=== PATIENT | female | born 1955 | race Caucasian/White ===

== ENCOUNTER 2016-10-21 10:48 | Day surgery (SDC) | payer BC ==
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
[~2016-10-21 10:48] MED LIST: Lactated Ringers 1,000 ML IV SCH; Lidocaine 1% 2 ML ONE; Lidocaine 1%/Sod Bicarbonate in NS 8.4% 1 ML Syringe IV PRN; Midazolam 1 MG/ML 2 ML SDV ONE; Propofol 200 MG/20 ML SDV ONE; Sodium Chloride 0.9% 10 ML Syringe FLUSH PRN; fentaNYL 100 MCG/2 ML SDV ONE
[2016-10-21] MEDS ORDERED: Heparin Sodium 5,000 Units/ML Vial ONE (11:13)
[2016-10-21] MEDS ORDERED: Lidocaine 1% 30 ML SDV ONE (11:14)
--- NOTE | 2016-10-21 12:35 | PCM.OPNOTE ---
- General Post-Op/Procedure Note Date of Surgery/Procedure: 10/21/16 Operative Procedure(s): Bone marrow biopsy and aspiration Pre Op Diagnosis: Elevated tryptase level Post-Op Diagnosis: Same Anesthesia Technique: Local (6 mL), MAC Primary Surgeon: Rere Wagner Anesthesia Provider: Claire Armijo Pathology: 1. Bone marrow aspirate 2. Bone marrow core specimen Fluid Replacement, Intraop: 350 (mL crystalloid ) EBL in mLs: 10 (marrow aspirated ) Complications: None Condition: Good Free Text/Narrative:: Indication for Procedure: The patient is a 61-year-old woman who was referred to me by Dr. Dora Kenyon for bone marrow biopsy for further work-up of an elevated tryptase level. I discussed with the patient bone marrow biopsy and associated risks of the procedure. The patient found these risks acceptable and agreed to proceed. Description of Procedure: The patient was taken to the operating room and placed in the left lateral decubitus position. After induction of adequate sedation, the right posterior iliac crest was identified anatomically and the area was prepped with chlorhexidine. 10 mL of local anesthetic was injected into the target insertion site into the posterior iliac crest and associated periosteum. A small stab incision was made using a scalpel after a sterile drape was applied. A [employer] bone marrow biopsy kit was utilized. The bone marrow core biopsy needle was introduced into the posterior iliac crest and the inner cannula removed. 10 mL of bone marrow was rapidly aspirated without difficulty into a heparinated syringe. This was immediately passed off to pathology for slide preparation. The bone marrow biopsy needle was removed and pressure was held. The inner cannula was replaced and the biopsy trocar was once again introduced through the incision site and placed in a slightly different position on the posterior iliac crest for obtaining a core bone marrow sample. A core sample was obtained and immediately passed off to pathology. The sample did appear to be adequate. Pressure was held at the incision site for a total of 5 minutes. Gauze and a band-aid was applied. The patient was returned to a supine position and pressure was placed on the biopsy site. An additional peripheral blood specimen during was drawn during today's visit for pathology for performance of the peripheral smear. The patient was awakened from sedation and returned to the recovery room in stable condition having tolerated the procedure well. Sponge and instrument counts were reported as correct at the end of the case. Postoperative Plan: The patient will be contacted by Dr. Kenyon's office regarding their bone marrow biopsy results. The patient is to call my office with any questions or concerns regarding the bone marrow biopsy site or concerns regarding the procedure.
--- NOTE | 2016-10-21 12:45 | PCM48HPAN ---
Post Anesthesia Note - EVALUATION WITHIN 48HRS OF ANESTHETIC Vital Signs in Normal Range: Yes Patient Participated in Evaluation: Yes Respiratory Function Stable: Yes Airway Patent: Yes Cardiovascular Function Stable: Yes Hydration Status Stable: Yes Pain Control Satisfactory: Yes Nausea and Vomiting Control Satisfactory: Yes Mental Status Recovered: Yes - COMMENTS/OBSERVATIONS Free Text/Narrative:: Nurse instructed to have patient drink some apple juice and then repeat blood sugar prior to discharge.
[2016-10-21 13:38] VITALS: BP 142/69
== END 2016-10-21 13:30 | disposition home or self-care (01) ==
LOC: JD.SDS 10:48
PROVIDERS: ATTEND Surgery
PROC: 079T3ZX Drainage of Bone Marrow, Percutaneous Approach, Diagnostic (ICD-10-PCS; principal; 2016-10-21)
PROC: 07DR3ZX Extraction of Iliac Bone Marrow, Percutaneous Approach, Diagnostic (ICD-10-PCS; 2016-10-21)
DX: Q82.2 Congenital cutaneous mastocytosis (principal); D75.89 Other specified diseases of blood and blood-forming organs; K21.9 Gastro-esophageal reflux disease without esophagitis; G89.29 Other chronic pain; F32.9 Major depressive disorder, single episode, unspecified; E03.9 Hypothyroidism, unspecified; E66.9 Obesity, unspecified; M15.9 Polyosteoarthritis, unspecified; G47.33 Obstructive sleep apnea (adult) (pediatric); E78.5 Hyperlipidemia, unspecified; E11.22 Type 2 diabetes mellitus with diabetic chronic kidney disease; E11.65 Type 2 diabetes mellitus with hyperglycemia; I12.9 Hypertensive chronic kidney disease with stage 1 through stage 4 chronic kidney disease, or unspecified chronic kidney disease; N18.9 Chronic kidney disease, unspecified; Z87.442 Personal history of urinary calculi; Z86.010 Personal history of colon polyps; Z90.89 Acquired absence of other organs; Z98.890 Other specified postprocedural states; Z79.82 Long term (current) use of aspirin; Z79.84 Long term (current) use of oral hypoglycemic drugs; Z79.899 Other long term (current) drug therapy; Z83.2 Family history of diseases of the blood and blood-forming organs and certain disorders involving the immune mechanism; Z68.41 Body mass index [BMI] 40.0-44.9, adult; Z88.8 Allergy status to other drugs, medicaments and biological substances; Z91.030 Bee allergy status
CPT/HCPCS: 36415; 38221; 82962; 85025; 85097; J1644; J2250; J3010; J7120; 01112; 81206; 81207; J2704

== ENCOUNTER 2018-01-03 06:47 | Day surgery (SDC) | payer BC ==
[~2018-01-03 06:47] MED LIST changes: -Lidocaine 1% 2 ML ONE; +Lidocaine 1%/Sod Bicarbonate in NS 8.4% 1 ML Syringe IDERM PRN; -Lidocaine 1%/Sod Bicarbonate in NS 8.4% 1 ML Syringe IV PRN; -Midazolam 1 MG/ML 2 ML SDV ONE; -Propofol 200 MG/20 ML SDV ONE; -fentaNYL 100 MCG/2 ML SDV ONE
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
[2018-01-03] MEDS ORDERED: Rocuronium 50 MG/5 ML Vial ONE (07:43)
[2018-01-03] MEDS ORDERED: Ondansetron 4 MG/2 ML SDV ONE (07:43)
[2018-01-03] MEDS ORDERED: Lidocaine 1% 4 ML ONE (07:44)
[2018-01-03] MEDS ORDERED: Midazolam 1 MG/ML 2 ML SDV ONE (07:44)
[2018-01-03] MEDS ORDERED: fentaNYL 250 MCG/5 ML SDV ONE (07:44)
[2018-01-03] MEDS ORDERED: Propofol 200 MG/20 ML SDV ONE (07:44)
[2018-01-03] MEDS ORDERED: 50% Dextrose in Water 50 ML Syringe IV ONE (08:00)
[2018-01-03] MEDS ORDERED: Lactated Ringers 1,000 ML ONE (08:31)
[2018-01-03] MEDS ORDERED: Ketorolac 30 MG/ML SDV ONE (08:35)
[2018-01-03] MEDS ORDERED: HYDROmorphone 0.5 MG/0.5 ML Syringe ONE (08:36)
[2018-01-03] MEDS ORDERED: fentaNYL 100 MCG/2 ML SDV IVPUSH PRN (09:11)
--- NOTE | 2018-01-03 09:12 | PCM.POSTAN ---
POST ANESTHESIA ASSESSMENT - MENTAL STATUS Mental Status: Alert, Oriented - VITAL SIGNS Pulse Rate: 79 SaO2: 96 Resp Rate: 16 Blood Pressure: 146/68 Temperature: 36.2 C - RESPIRATORY Respiratory Status: Respiratory Rate WNL, Airway Patent, O2 Saturation Stable, Supplemental Oxygen - CARDIOVASCULAR CV Status: Pulse Rate WNL, Blood Pressure Stable - GASTROINTESTINAL GI Status: No Symptoms - PAIN Pain Score: 0 - POST OP HYDRATION Hydration Status: Adequate & Stable - OBSERVATIONS Free Text/Narrative:: no anesthesia complications noted
--- NOTE | 2018-01-03 10:46 | PCM48HPAN ---
Post Anesthesia Note - EVALUATION WITHIN 48HRS OF ANESTHETIC Vital Signs in Normal Range: Yes Patient Participated in Evaluation: Yes Respiratory Function Stable: Yes Airway Patent: Yes Cardiovascular Function Stable: Yes Hydration Status Stable: Yes Pain Control Satisfactory: Yes Nausea and Vomiting Control Satisfactory: Yes Mental Status Recovered: Yes Pulse Rate: 79 Resp Rate: 17 Temperature: 36.2 C Blood Pressure: 146/68 - COMMENTS/OBSERVATIONS Free Text/Narrative:: no anesthesia complications noted
[2018-01-03 11:37] VITALS: BP 140/64
--- NOTE | 2018-01-19 07:31 | PCM.SN ---
- Free Text/Narrative Note: See scanned H&P
--- NOTE | 2018-01-19 07:39 | PCM.OPNOTE ---
- General Post-Op/Procedure Note Date of Surgery/Procedure: 01/03/18 Operative Procedure(s): hysteroscopy, dilation and curettage Findings: Uterine polyp, otherwise normal Pre Op Diagnosis: postmenopausal bleeding Post-Op Diagnosis: Same Anesthesia Technique: General ET Tube Primary Surgeon: Aishwarya Strauss Anesthesia Provider: Manuel Ramos Pathology: endometrial polyps Fluid Replacement, Intraop: 1,000 EBL in mLs: 20 Complications: None Condition: Good Free Text/Narrative:: Patient taken to operating room. Anesthesia initiated. Prepped and draped in normal sterile fashion in lithomy position. Speculum placed. Anterior lip of cervix grasped with single toothed tenaculum. Sequentially dilated to allow passage of 5 mm hysteroscope. Endometrial polyp noted. Biopsy taken with polyp forceps through hysterocope. Then D&C preformed and polyp removed. Hysteroscopy after demonstrated no residual polyp. Minimal bleeding. Instruments removed.
== END 2018-01-03 10:44 | disposition home or self-care (01) ==
LOC: JD.SDS 06:47
PROVIDERS: ATTEND Obstetrics & Gynecology
DX: N84.0 Polyp of corpus uteri (principal); I10 Essential (primary) hypertension; E11.9 Type 2 diabetes mellitus without complications; E66.9 Obesity, unspecified; Z68.42 Body mass index [BMI] 45.0-49.9, adult; K21.9 Gastro-esophageal reflux disease without esophagitis; E78.00 Pure hypercholesterolemia, unspecified; E03.9 Hypothyroidism, unspecified; Z79.82 Long term (current) use of aspirin; Z79.899 Other long term (current) drug therapy; Z88.8 Allergy status to other drugs, medicaments and biological substances; Z91.030 Bee allergy status
CPT/HCPCS: 36415; 58558; 82962; 85025; 93005; J1170; J1885; J2250; J2405; J2704; J3010; J7060; J7120; 00952; J2001

== ENCOUNTER 2020-12-31 07:41 | Day surgery (SDC) | payer BC ==
[~2020-12-31 07:41] MED LIST changes: +Cefuroxime 10 MG/ML SYRINGE EYERT SCH; -Lactated Ringers 1,000 ML IV SCH; +Lidocaine 1% PF 2 ML SDV INJECT SCH; -Lidocaine 1%/Sod Bicarbonate in NS 8.4% 1 ML Syringe IDERM PRN; +Pilocarpine 4% Ophth Soln 15 ML Bot EYERT SCH; -Sodium Chloride 0.9% 10 ML Syringe FLUSH PRN
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
[2020-12-31] MEDS: Polymyxin B/Trimethoprim 10 ML Bottle EYERT SCH ×3 (07:55→09:24)
[2020-12-31] MEDS: Brimonidine 0.2% Ophth Soln 5 ML Bottle EYERT SCH ×4 (08:00→09:24)
[2020-12-31] MEDS: Phenylephrine 2.5% Ophth Soln 2 ML Bot EYERT SCH ×5 (08:05→09:02)
[2020-12-31] MEDS: Tropicamide 1% Ophth Soln 15 ML Bottle EYERT SCH ×3 (08:10→08:30)
[2020-12-31 08:37] VITALS: PULSE 71
[2020-12-31] MEDS: Tetracaine HCl/PF 0.5% 4 ML Bottle EYEBOTH SCH ×4 (08:50→09:10)
--- NOTE | 2020-12-31 09:27 | PCM48HPAN ---
Post Anesthesia Note - EVALUATION WITHIN 48HRS OF ANESTHETIC Vital Signs in Normal Range: Yes Patient Participated in Evaluation: Yes Respiratory Function Stable: Yes Airway Patent: Yes Cardiovascular Function Stable: Yes Hydration Status Stable: Yes Pain Control Satisfactory: Yes Nausea and Vomiting Control Satisfactory: Yes Mental Status Recovered: Yes Vital Signs: Last Vital Signs Temp 97.5 F 12/31/20 07:38 Pulse 71 12/31/20 07:38 Resp 17 12/31/20 07:38 BP 158/91 H 12/31/20 07:38 Pulse Ox 99 12/31/20 07:38 136/80 73 18 96% 97.5
[2020-12-31 09:42] VITALS: BP 155/86
== END 2020-12-31 09:37 | disposition home or self-care (01) ==
LOC: JD.SDS 07:41
PROVIDERS: ATTEND Ophthalmology
DX: E11.36 Type 2 diabetes mellitus with diabetic cataract (principal); H25.813 Combined forms of age-related cataract, bilateral; H16.103 Unspecified superficial keratitis, bilateral; H16.223 Keratoconjunctivitis sicca, not specified as Sjogren's, bilateral; H02.831 Dermatochalasis of right upper eyelid; H02.834 Dermatochalasis of left upper eyelid; H18.613 Keratoconus, stable, bilateral; E78.00 Pure hypercholesterolemia, unspecified; I10 Essential (primary) hypertension; Z85.3 Personal history of malignant neoplasm of breast
CPT/HCPCS: 66984; 82947; J0697; V2632

== ENCOUNTER 2021-01-26 07:20 | Day surgery (SDC) | payer BC ==
[~2021-01-26 07:20] MED LIST changes: +Cefuroxime 10 MG/ML SYRINGE EYELF SCH; -Cefuroxime 10 MG/ML SYRINGE EYERT SCH; +Pilocarpine 4% Ophth Soln 15 ML Bot EYELF SCH; -Pilocarpine 4% Ophth Soln 15 ML Bot EYERT SCH
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
[2021-01-26] MEDS: Polymyxin B/Trimethoprim 10 ML Bottle EYELF SCH ×3 (08:20→09:46)
[2021-01-26] MEDS: Brimonidine 0.2% Ophth Soln 5 ML Bottle EYELF SCH ×3 (08:24→09:46)
[2021-01-26] MEDS: Phenylephrine 2.5% Ophth Soln 2 ML Bot EYELF SCH ×5 (08:27→09:27)
[2021-01-26] MEDS: Tropicamide 1% Ophth Soln 15 ML Bottle EYELF SCH ×4 (08:34→09:02)
[2021-01-26] MEDS: Tetracaine HCl/PF 0.5% 4 ML Bottle EYEBOTH SCH ×4 (09:06→09:34)
--- NOTE | 2021-01-26 09:46 | PCM48HPAN ---
Post Anesthesia Note - EVALUATION WITHIN 48HRS OF ANESTHETIC Vital Signs in Normal Range: Yes Patient Participated in Evaluation: Yes Respiratory Function Stable: Yes Airway Patent: Yes Cardiovascular Function Stable: Yes Hydration Status Stable: Yes Pain Control Satisfactory: Yes Nausea and Vomiting Control Satisfactory: Yes Mental Status Recovered: Yes Vital Signs: Last Vital Signs Temp 36.1 C 01/26/21 07:30 Pulse 72 01/26/21 07:30 Resp 18 01/26/21 07:30 BP 145/89 H 01/26/21 07:30 Pulse Ox 100 01/26/21 07:30
[2021-01-26 10:05] VITALS: BP 100/69; PULSE 84
== END 2021-01-26 09:55 | disposition home or self-care (01) ==
LOC: JD.SDS 07:20
PROVIDERS: ATTEND Ophthalmology
DX: E11.36 Type 2 diabetes mellitus with diabetic cataract (principal); H25.812 Combined forms of age-related cataract, left eye; H18.613 Keratoconus, stable, bilateral; H16.103 Unspecified superficial keratitis, bilateral; H16.223 Keratoconjunctivitis sicca, not specified as Sjogren's, bilateral; H02.831 Dermatochalasis of right upper eyelid; H02.834 Dermatochalasis of left upper eyelid; E78.00 Pure hypercholesterolemia, unspecified; I10 Essential (primary) hypertension; Z98.890 Other specified postprocedural states; Z79.899 Other long term (current) drug therapy; Z79.82 Long term (current) use of aspirin; Z79.84 Long term (current) use of oral hypoglycemic drugs; Z88.8 Allergy status to other drugs, medicaments and biological substances; Z96.1 Presence of intraocular lens
CPT/HCPCS: 66984; J0697; V2632

== ENCOUNTER → 2021-07-29 | Day surgery (SDC) | payer BC ==
[~2021-07-29] MED LIST changes: -Cefuroxime 10 MG/ML SYRINGE EYELF SCH; +Lactated Ringers 1,000 ML IV SCH; +Lidocaine 1% 4 ML ONE; -Lidocaine 1% PF 2 ML SDV INJECT SCH; +Lidocaine 1%/Sod Bicarbonate in NS 8.4% 1 ML Syringe IDERM PRN; -Pilocarpine 4% Ophth Soln 15 ML Bot EYELF SCH; +Propofol 200 MG/20 ML SDV ONE; +Sodium Chloride 0.9% 10 ML Syringe FLUSH PRN; +Sodium Chloride 0.9% 10 ML Syringe FLUSH SCH
[2021-07-29 10:13] VITALS: BP 108/63; PULSE 81
== END | disposition home or self-care (01) ==
LOC: JD.SDS 07:36
PROVIDERS: ATTEND Surgery
DX: Z12.11 Encounter for screening for malignant neoplasm of colon (principal); C50.919 Malignant neoplasm of unspecified site of unspecified female breast; K57.30 Diverticulosis of large intestine without perforation or abscess without bleeding; E66.01 Morbid (severe) obesity due to excess calories; K63.89 Other specified diseases of intestine; K21.9 Gastro-esophageal reflux disease without esophagitis; I10 Essential (primary) hypertension; E78.00 Pure hypercholesterolemia, unspecified; G47.30 Sleep apnea, unspecified; H54.7 Unspecified visual loss; E03.9 Hypothyroidism, unspecified; E55.9 Vitamin D deficiency, unspecified; E11.9 Type 2 diabetes mellitus without complications; M17.10 Unilateral primary osteoarthritis, unspecified knee; Z88.8 Allergy status to other drugs, medicaments and biological substances; Z88.2 Allergy status to sulfonamides; Z91.030 Bee allergy status; Z79.899 Other long term (current) drug therapy; Z79.82 Long term (current) use of aspirin; Z86.010 Personal history of colon polyps; Z98.890 Other specified postprocedural states; Z90.89 Acquired absence of other organs; Z90.711 Acquired absence of uterus with remaining cervical stump; Z79.84 Long term (current) use of oral hypoglycemic drugs; Z80.0 Family history of malignant neoplasm of digestive organs; Z68.41 Body mass index [BMI] 40.0-44.9, adult
CPT/HCPCS: 45378; 82947; J2704; J7120; 00812